=== PATIENT | female | born 1960 | race American Indian/Alaskan Native ===

== ENCOUNTER 2017-01-08 18:28 | Emergency (ER) | payer OTHER ==
[2017-01-08 18:45] VITALS: BP 188/105
[2017-01-08 19:23] LABS: Bacteria,Urine 1+ /HPF (Negative); Bilirubin,Urine NEG (Negative); Blood,Urine SM (Negative); Ketones,Urine NEG (Negative); Leukocyte Esterase,Urine LG (Negative); Mucus,Urine FEW /HPF; Nitrite,Urine NEG (Negative); Protein,Urine <15 mg/dL mg/dL (Negative); Urobilinogen,Urine < 2.0 mg/dL (<2.0)
[2017-01-08 19:35] LABS: Alanine Aminotransferase 33 units/L (7-56); Albumin 4.6 g/dL (3.9-5); Albumin/Globulin Ratio 1.5 %; Alkaline Phosphatase 89 units/L (35-129); Anion Gap 19 mmol/L; BUN/Creatinine Ratio 13; Blood Urea Nitrogen 12 mg/dL (7-17); Calcium 10.4 mg/dL (8.4-10.2); Carbon Dioxide 27 mmol/L (22-30); Chloride 101.6 mmol/L (98-107); Glucose 106 mg/dL (65-100); Lipase 89 units/L (13-60); Potassium 4.7 mmol/L (3.6-5.0); Sodium 143 mmol/L (137-145); Total Protein 7.7 g/dL (6.3-8.2)
[2017-01-08 19:41] LABS: Basophils % (Auto) 1.4 % (0.0-1.8); Hematocrit 42.1 % (30.3-42.9); Hemoglobin 14.4 gm/dl (10.1-14.3); Mean Corpuscular HGB Conc 34 % (30-34); Mean Corpuscular Hemoglobin 31 pg (28-32); Mean Corpuscular Volume 91 fl (79-97); Platelet Count 366 K/mm3 (140-440); Red Blood Count 4.61 M/mm3 (3.65-5.03); Red Cell Distribution Width 12.8 % (13.2-15.2); White Blood Count 7.7 K/mm3 (4.5-11.0)
--- NOTE | 2017-01-10 13:02 | ED Elopement Review ---
ED Pt Elopement review - Results review Lab results: Laboratory Tests 01/08/17 01/08/17 01/08/17 18:47 18:47 18:55 WBC 7.7 RBC 4.61 Hgb 14.4 H Hct 42.1 MCV 91 MCH 31 MCHC 34 RDW 12.8 L Plt Count 366 Lymph % (Auto) 53.4 H [place] % (Auto) 5.9 Eos % (Auto) 2.0 Baso % (Auto) 1.4 Lymph # 4.1 [place] # 0.5 Eos # 0.2 Baso # 0.1 Seg Neutrophils % 37.3 L Seg Neutrophils # 2.9 Sodium 143 Potassium 4.7 Chloride 101.6 Carbon Dioxide 27 Anion Gap 19 BUN 12 Creatinine 0.9 Estimated GFR > 60 BUN/Creatinine Ratio 13 Glucose 106 H Calcium 10.4 H Total Bilirubin 0.40 AST 61 H ALT 33 Alkaline Phosphatase 89 Total Protein 7.7 Albumin 4.6 Albumin/Globulin Ratio 1.5 Lipase 89 H Urine Color Yellow Urine Turbidity Clear Urine pH 7.0 Ur Specific [place] 1.013 Urine Protein <15 mg/dl Urine Glucose (UA) Neg Urine Ketones Neg Urine Blood Sm Urine Nitrite Neg Urine Bilirubin Neg Urine Urobilinogen < 2.0 Ur Leukocyte Esterase Lg Urine WBC (Auto) 35.0 H Urine RBC (Auto) 3.0 U Epithel Cells (Auto) 1.0 Urine Bacteria (Auto) 1+ Calcium Oxalate Crystal Few Urine Mucus Few - Call Back decision Pt Call Back Decision: Call pt to return to ED [facility]
== END 2017-01-09 03:40 | disposition left against medical advice (07) ==
LOC: ED 18:28
DX: R10.9 Unspecified abdominal pain (principal); Z53.21 Procedure and treatment not carried out due to patient leaving prior to being seen by health care provider
CPT/HCPCS: 36415; 80053; 81001; 83690; 85025

== ENCOUNTER 2019-01-03 19:37 | Emergency (ER) | payer SELFPAY ==
--- NOTE | 2019-01-03 20:15 | Emergency Department Report ---
Blank Doc - Documentation Documentation: 58-year-old female that presents with right hip pain with radiation to right l ower leg. This initial assessment/diagnostic orders/clinical plan/treatment(s) is/are subject to change based on patient's health status, clinical progression and re- assessment by fellow clinical providers in the ED. Further treatment and workup at subsequent clinical providers discretion. Patient/guardians urged not to elope from the ED as their condition may be serious if not clinically assessed and managed. Initial orders include: 1- Patient sent to [facility] for further evaluation and treatment 2-xrays
[2019-01-03 20:16] VITALS: BP 108/68
--- NOTE | 2019-01-03 21:04 | Emergency Department Report ---
HPI - General Chief Complaint: Extremity Injury, Lower Time Seen by Provider: 01/03/19 20:13 - HPI HPI: 58-year-old -[place] female presents to the emergency department with a 1.5 week history of right hip pain. She denies any fall, trauma or any obvious inciting event. Pain worsens when she is laying on that side or with movement of the right leg. She tried some Tylenol and Aleve for her symptoms without any relief. Patient has a history of hypertension and did have some previous back surgery for sciatica. She denies that the pain radiates to the back or down the leg. No swelling of the legs or skin color change. ED Past Medical Hx - Past Medical History Previous Medical History?: Yes Hx Hypertension: Yes (no meds) Additional medical history: sinus infection - Surgical History Additional Surgical History: right knee surgery - Social History Smoking Status: Never Smoker Substance Use Type: None - Medications Home Medications: Home Medications Medication Instructions Recorded Confirmed Last Taken Type HYDROcodone/APAP 5-325 [[place] 1 each PO Q6HR PRN #12 tablet 01/03/19 Unknown Rx 5/325] ED Review of Systems ROS: Stated complaint: PAIN IN RIGHT HIP AND LEG Other details as noted in HPI Comment: All other systems reviewed and negative Constitutional: denies: chills, fever Musculoskeletal: arthralgia, myalgia. denies: back pain, joint swelling Skin: denies: rash, lesions Neurological: denies: numbness, paresthesias Physical Exam - Physical Exam Vital Signs: Vital Signs 01/03/19 20:13 Temperature 98.1 F Pulse Rate 74 Respiratory 18 Rate Blood Pressure 108/68 O2 Sat by Pulse 100 Oximetry Physical Exam: GENERAL: The patient is well-developed well-nourished. HENT: Normocephalic. Atraumatic. Patient has moist mucous membranes. EYES: Extraocular motions are intact. NECK: Supple. Trachea is midline. ABDOMEN: There is no abdominal distention. SKIN: Skin is warm and dry. NEURO: The patient is awake, alert, and oriented. The patient is cooperative. The patient has no focal neurologic deficits. Normal speech. MUSCULOSKELETAL: There is tenderness to palpation to the right lateral hip but no obvious deformity. Full range of motion. Pain is reproducible or increases with active but not passive range of motion. ED Course Vital Signs 01/03/19 20:13 Temperature 98.1 F Pulse Rate 74 Respiratory 18 Rate Blood Pressure 108/68 O2 Sat by Pulse 100 Oximetry ED Medical Decision Making - Radiology Data Radiology results: image reviewed interpreted by me: X-ray of the right hip does not show any fracture, dislocation, or any acute process. - Medical Decision Making This patient presents with a 1.5 week history of some right hip pain that is atraumatic. X-ray does not show any fracture, dislocation or any acute process. While she has a history of sciatica, this appears atypical as it is localized just to the right lateral hip. She also does not have any pain with passive movement, only active. Vital signs stable throughout her ED course. The patient appears safe for discharge home at this time but has been given some pain medication and a referral for an orthopedist. She will return to the ER with any worsening of her symptoms or any acute distress. - Differential Diagnosis osteoarthritis, bursitis, tendinitis, sciatica Critical Care Time: No Critical care attestation.: If time is entered above; I have spent that time in minutes in the direct care of this critically ill patient, excluding procedure time. ED Disposition Clinical Impression: Right hip pain Disposition: DC-01 TO HOME OR SELFCARE Is pt being admited?: No Condition: Stable Instructions: Arthralgia (ED) Additional Instructions: Please follow-up with a primary care physician in the next few days. I am giving you a referral for 2 different local orthopedists, Dr. Holden and Christaino, to follow up regarding your right hip pain. Return to the emergency Department with any worsening of your symptoms or any acute distress. You have been prescribed a medication that is sedating and therefore should not be taken prior to driving, working, and responsible for children and in no way should be mixed with alcohol of any quantity. Prescriptions: HYDROcodone/APAP 5-325 [[place] 5/325] 1 each PO Q6HR PRN #12 tablet PRN Reason: Pain Referrals: BERNIEC HOLDEN MD [Staff Physician] - 2-3 Days [facility] [Provider Group] - 2-3 Days Time of Disposition: 21:26
--- NOTE | 2019-01-03 21:06 | XRay Report ---
HISTORY:hip pain COMPARISON: None. TECHNIQUE: AP lateral and obliques views were obtained FINDINGS: Bones: No fracture or dislocation. Joint spaces: Maintained. Soft tissues: No significant abnormality. Additional findings: Pedicle screws and plates present lumbar sacral junction IMPRESSION: 1. No significant abnormality. Signer Name: Srinath Stockton MD Signed: 01/03/2019 9:02 PM Workstation Name: [id number]
[2019-01-03] MEDS ORDERED: TORADOL IM ONE (21:16)
== END 2019-01-03 21:57 | disposition home or self-care (01) ==
LOC: ED 19:37
DX: M25.551 Pain in right hip (principal); I10 Essential (primary) hypertension; Z98.890 Other specified postprocedural states
CPT/HCPCS: 73502; 96372; 99283; J1885

== ENCOUNTER 2019-05-22 08:28 | Outpatient (CLI) | payer OTHER ==
--- NOTE | 2019-05-22 09:23 | Mammography Report ---
DIGITAL SCREENING MAMMOGRAM WITH CAD, 05/22/2019 INDICATION: Routine screening mammography. TECHNIQUE: Digital bilateral 2D mammography was obtained in the craniocaudal and mediolateral obliq ue projections. This examination was interpreted with the benefit of Computer-Aided Detection analysi s. COMPARISON: 01/03/2019 FINDINGS: Breast Density: The breasts are heterogeneously dense, which may obscure small masses. There is no evidence of dominant mass, suspicious calcifications or architectural distortion in eithe r breast. IMPRESSION: No mammographic evidence of malignancy. Follow up recommendation: Routine yearly BI-RADS Category 1: Negative. A "normal" or negative report should not discourage follow up or biopsy of a clinically significant f inding. A written summary of these findings will be mailed to the patient. The patient will be entered into a mammography reporting system which will generate a reminder letter for the patient's next appointmen t at the appropriate interval. The [employer] recommends yearly mammograms starting at age 40 and continuing as l [place] as a woman is in good health. Breast MRI is recommended for women with an approximate 20-25% or greater lifetime risk of breast cancer, including women with a strong family history of breast or ova trae cancer or who have been treated for Hodgkin's disease. Signer Name: Stanford Rangel MD Signed: 05/22/2019 9:19 AM Workstation Name: [id number]
== END 2019-05-22 08:29 | disposition home or self-care (01) ==
LOC: SPVWC 08:28
PROVIDERS: ATTEND Hospitalist
DX: Z12.31 Encounter for screening mammogram for malignant neoplasm of breast (principal)
CPT/HCPCS: 77067